=== PATIENT | male | born 1965 | race Caucasian/White ===

== ENCOUNTER 2023-08-06 18:08 | Emergency (ER) | payer OTHER ==
[2023-08-06 18:17] VITALS: BP 131/85; PULSE 93; RESP 19; TEMP 98.6; BMI 22.0
== END 2023-08-06 21:31 ==
LOC: JER 18:08
DX: F11.90 Opioid use, unspecified, uncomplicated (principal); R10.32 Left lower quadrant pain; F19.10 Other psychoactive substance abuse, uncomplicated; R40.0 Somnolence
CPT/HCPCS: 99282-25

== ENCOUNTER 2023-08-06 22:18 | Inpatient (IN) | payer OTHER ==
[2023-08-06 22:53] VITALS: BMI 22.4
[2023-08-06] MEDS ORDERED: guaiFENesin 600 MG TABLET.ER (FP) PO PRN (23:54)
[2023-08-06] MEDS ORDERED: IBUPROFEN 400 MG TABLET (FP) PO PRN (23:54)
[2023-08-06] MEDS ORDERED: NALOXONE HCL 0.4 MG/ML VIAL IM PRN (23:54)
[2023-08-06] MEDS ORDERED: BENZOCAINE/MENTHOL (CHLORASEPTIC ) LOZENGE MM PRN (23:54)
[2023-08-06] MEDS ORDERED: NICOTINE POLACRILEX 2 MG LOZENGE BC PRN (23:54)
[2023-08-06] MEDS ORDERED: IBUPROFEN 600 MG TABLET (FP) PO PRN (23:54)
[2023-08-06] MEDS ORDERED: NALOXONE HCL (KLOXXADO) 8 MG SPRAY NS PRN (23:54)
[2023-08-06] MEDS ORDERED: POLYETHYLENE GLYCOL (HEALTHYLAX) 3350 17 GM PACKET PO PRN (23:54)
[2023-08-06] MEDS ORDERED: LOPERAMIDE HCL 2 MG CAPSULE PO PRN (23:54)
[2023-08-06] MEDS ORDERED: MAGNESIUM HYDROX 2400MG/30ML ORAL SUSPENSION 30 ML CUP PO PRN (23:54)
[2023-08-06] MEDS ORDERED: DICYCLOMINE HCL 10 MG CAPSULE PO PRN (23:54)
[2023-08-06] MEDS ORDERED: BISMUTH SUBSALICYLATE 524 MG/30 ML PO PRN (23:54)
[2023-08-06] MEDS ORDERED: BENZONATATE 200 MG CAPSULE PO PRN (23:54)
[2023-08-07] MEDS: PRENATAL VITAMINS W/ FOLIC ACID TABLET (FP) PO SCH (09:49)
[2023-08-07] MEDS: hydrOXYzine PAMOATE 25 MG CAPSULE (FP) PO PRN (09:49)
[2023-08-07] MEDS: MAG HYDROX/AL HYDROX/SIMETH 30 ML UNIT-DOSE CUP PO PRN (09:49)
[2023-08-07] MEDS: NICOTINE 14 MG/24 HOURS TOPICAL PATCH TD SCH (09:54)
[2023-08-07] MEDS: SENNOSIDES 8.6MG TABLET (FP) PO SCH (10:30)
[2023-08-07 10:51] LABS: HEMOGLOBIN 10.4 GM/dL (11.7-16.9); MCH 26.6 pg (25.7-33.7); MCHC 30.7 g/dl (32.0-35.9); MEAN CELL VOLUME 86.6 fl (80-96); MEAN PLT VOLUME 9.1 fl (7.5-11.1); PLATELET COUNT 568 10^3/uL (134-434); RBC 3.93 M/mm3 (4.00-5.60); RDW 23.7 % (11.9-15.9)
[2023-08-07 10:53] LABS: WHITE BLOOD COUNT 15.2 K/mm3 (4.0-10.0)
[2023-08-07] MEDS: PANTOPRAZOLE 40 MG TABLET PO SCH (10:56)
[2023-08-07] MEDS: ALBUTEROL SO4 HFA INHALER IH SCH (10:56)
[2023-08-07] MEDS: CLOPIDOGREL BISULFATE 75 MG TABLET (FP) PO SCH (10:56)
[2023-08-07] MEDS: APIXABAN 5 MG TABLET PO SCH (10:56)
[2023-08-07] MEDS: levETIRAcetam 500 MG TABLET (FP) PO SCH (10:56)
[2023-08-07] MEDS ORDERED: chlordiazePOXIDE HCL 25 MG CAPSULE PO PRN (10:59)
[2023-08-07] MEDS: ONDANSETRON *ODT* 4 MG TABLET SL PRN (11:04)
[2023-08-07] MEDS: chlordiazePOXIDE HCL 25 MG CAPSULE PO SCH (11:32)
[2023-08-07 11:46] LABS: CHLORIDE 106 mmol/L (98-107); POTASSIUM 4.3 mmol/L (3.5-5.1); SODIUM 141 mmol/L (136-145)
[2023-08-07 11:55] LABS: ALBUMIN 3.9 g/dl (3.4-5.0); ANION GAP 6 mmol/L (4-13); BLOOD UREA NITROGEN 14.5 mg/dL (7-18); CALCIUM 9.2 mg/dL (8.5-10.1); CO2 28 mmol/L (21-32); GLUCOSE,RANDOM 93 mg/dL (74-106)
[2023-08-07 11:58] LABS: CREATININE 0.9 mg/dL (0.55-1.3); SGPT/ALT 21 U/L (13-61)
[2023-08-07 11:59] LABS: SGOT/AST 13 U/L (15-37)
[2023-08-07 12:00] LABS: BILIRUBIN,TOTAL 0.3 mg/dL (0.2-1); TOT PROT 7.4 g/dl (6.4-8.2)
[2023-08-07 12:01] LABS: ALK PHOS 142 U/L (45-117)
[2023-08-07 12:21] LABS: ANISOCYTOSIS 3+; CORRECTED WBC 13.69 K/mm3; MACROCYTOSIS 0; OVALOCYTE 1+; TARGET CELLS 1+
[2023-08-07] MEDS: HYDROXYUREA 500 MG CAPSULE PO SCH (16:02)
[2023-08-07] MEDS: THIAMINE HCL 100 MG TABLET (FP) PO SCH (23:00)
[2023-08-07] MEDS: MELATONIN 5 MG TABLETS PO SCH (23:01)
[2023-08-08] MEDS: SENNOSIDES 8.6MG TABLET (FP) PO SCH (10:05)
[2023-08-08 10:32] LABS: POTASSIUM 4.7 mmol/L (3.5-5.1)
[2023-08-08 10:35] LABS: BLOOD UREA NITROGEN 14.2 mg/dL (7-18)
[2023-08-08 10:37] LABS: CREATININE 0.8 mg/dL (0.55-1.3)
[2023-08-08] MEDS: ALBUTEROL SO4 HFA INHALER IH PRN (17:46)
[2023-08-08] MEDS ORDERED: ALBUTEROL SO4 2.5/IPRATROPIUM 0.5 INH SOL 3 ML VIAL.NEB. NEB ONE (18:02)
[2023-08-08] MEDS ORDERED: ASPIRIN 81 MG CHEWABLE TABLETS ONE (18:08)
[2023-08-08] MEDS: ALBUTEROL SO4 2.5/IPRATROPIUM 0.5 INH SOL 3 ML VIAL.NEB. NEB ONE (18:17)
[2023-08-08] MEDS: ASPIRIN 81 MG CHEWABLE TABLETS PO ONE (18:17)
[2023-08-08] MEDS ORDERED: NITROGLYCERIN SUBLINGUAL 1/150 0.4 MG TAB ONE (18:21)
[2023-08-08] MEDS: NITROGLYCERIN SUBLINGUAL 1/150 0.4 MG TAB SL ONE (18:21)
[2023-08-08 18:56] VITALS: BP 142/88; RESP 18; TEMP 98.4
[2023-08-08 19:04] VITALS: PULSE 108
[2023-08-09] MEDS: chlordiazePOXIDE HCL 25 MG CAPSULE PO SCH (05:55)
[2023-08-10] MEDS ORDERED: chlordiazePOXIDE HCL 10 MG CAPSULE PO PRN
[2023-08-10] MEDS ORDERED: chlordiazePOXIDE HCL 10 MG CAPSULE PO SCH (05:00)
[2023-08-11] MEDS ORDERED: chlordiazePOXIDE HCL 10 MG CAPSULE PO SCH (05:00)
[2023-08-12] MEDS ORDERED: chlordiazePOXIDE HCL 10 MG CAPSULE PO ONE (05:00)
== END 2023-08-08 23:58 | disposition short-term general hospital (02) | DRG 773 ==
LOC: YASAS 22:18 → Y3N 23:55
PROVIDERS: ADMIT Allergy & Immunology; ATTEND Surgery
PROC: HZ2ZZZZ Detoxification Services for Substance Abuse Treatment (ICD-10-PCS; principal; 2023-08-06)
DX: F10.230 Alcohol dependence with withdrawal, uncomplicated (principal); F11.20 Opioid dependence, uncomplicated; F14.20 Cocaine dependence, uncomplicated; F17.210 Nicotine dependence, cigarettes, uncomplicated; E78.5 Hyperlipidemia, unspecified; I10 Essential (primary) hypertension; J45.20 Mild intermittent asthma, uncomplicated; G40.909 Epilepsy, unspecified, not intractable, without status epilepticus; R07.9 Chest pain, unspecified; R06.02 Shortness of breath; Z28.310 Unvaccinated for COVID-19; Z28.9 Immunization not carried out for unspecified reason; Z90.81 Acquired absence of spleen
CPT/HCPCS: 36415; 71046-TC-FY; 80048; 80053; 80307; 85025; 86593; 86780; 87635; 93005; 93010; 94640; J8999; Q0162

== ENCOUNTER 2023-08-08 19:09 | Inpatient (IN) | payer OTHER ==
[2023-08-08 19:53] LABS: HEMOGLOBIN 10.2 GM/dL (11.7-16.9); MCH 26.6 pg (25.7-33.7); MCHC 30.9 g/dl (32.0-35.9); MEAN CELL VOLUME 86.1 fl (80-96); MEAN PLT VOLUME 8.8 fl (7.5-11.1); PLATELET COUNT 493 10^3/uL (134-434); RBC 3.84 M/mm3 (4.00-5.60); RDW 22.8 % (11.9-15.9); WHITE BLOOD COUNT 14.7 K/mm3 (4.0-10.0)
[2023-08-08 20:07] LABS: INR 1.08 (0.83-1.09); PROTHROMBIN TIME (PATIENT) 12.5 SEC (9.7-13.0)
[2023-08-08 20:09] LABS: ADD RBC MORPHOLOGY YES
[2023-08-08 20:10] LABS: ACTIVATED PTT 34.6 SECONDS (25.2-36.5)
[2023-08-08 20:14] LABS: POTASSIUM 4.1 mmol/L (3.5-5.1)
[2023-08-08 20:18] LABS: ALBUMIN 3.6 g/dl (3.4-5.0); BLOOD UREA NITROGEN 15.5 mg/dL (7-18); CALCIUM 8.7 mg/dL (8.5-10.1); MAGNESIUM 1.8 mg/dL (1.8-2.4)
[2023-08-08 20:20] LABS: CREATININE 0.9 mg/dL (0.55-1.3)
[2023-08-08 20:22] LABS: BILIRUBIN,TOTAL 0.2 mg/dL (0.2-1)
[2023-08-08] MEDS ORDERED: ACETAMINOPHEN INJECTION 100 ML IVPB ONE (20:34)
[2023-08-08] MEDS ORDERED: FAMOTIDINE 20 MG/50 ML IVPB 20 MG/50 ML MG IVPB ONE (20:35)
[2023-08-08] MEDS: ACETAMINOPHEN 1000 MG/100 ML BAG IVPB ONE (20:41)
[2023-08-08] MEDS: FAMOTIDINE 20 MG/50 ML IVPB 20 MG/50 ML MG IVPB ONE (20:41)
[2023-08-08 21:09] LABS: ANISOCYTOSIS 2+; CORRECTED WBC 12.15 K/mm3; MACROCYTOSIS 1+; OVALOCYTE 1+; TARGET CELLS 2+
[2023-08-09] MEDS: KETOROLAC TROMETHAMINE 15 MG/ML VIAL IVPUSH ONE (02:11)
[2023-08-09] MEDS ORDERED: ACETAMINOPHEN INJECTION 100 ML IVPB ONE (02:24)
[2023-08-09] MEDS: ACETAMINOPHEN 1000 MG/100 ML BAG IVPB ONE (02:32)
[2023-08-09] MEDS ORDERED: ALBUTEROL SO4 HFA INHALER IH PRN (02:45)
[2023-08-09] MEDS ORDERED: chlordiazePOXIDE HCL 10 MG CAPSULE ONE (04:09)
[2023-08-09] MEDS ORDERED: APIXABAN 5 MG TABLET ONE (04:10)
[2023-08-09] MEDS: chlordiazePOXIDE HCL 10 MG CAPSULE PO SCH (04:19)
[2023-08-09] MEDS: APIXABAN 5 MG TABLET PO SCH (04:19)
[2023-08-09 05:27] VITALS: BMI 23.1
[2023-08-09] MEDS: traMADol HCL 50 MG TABLET PO ONE (05:35)
[2023-08-09] MEDS: PANTOPRAZOLE 40 MG TABLET PO SCH (06:39)
[2023-08-09 08:58] LABS: POTASSIUM 4.3 mmol/L (3.5-5.1)
[2023-08-09 09:06] LABS: BLOOD UREA NITROGEN 12.7 mg/dL (7-18)
[2023-08-09 09:09] LABS: CREATININE 0.9 mg/dL (0.55-1.3)
[2023-08-09] MEDS: CLOPIDOGREL BISULFATE 75 MG TABLET (FP) PO SCH (09:24)
[2023-08-09 09:25] LABS: HEMATOCRIT 30.9 % (35.4-49); HEMOGLOBIN 9.3 GM/dL (11.7-16.9); MCH 26.3 pg (25.7-33.7); MCHC 29.9 g/dl (32.0-35.9); MEAN CELL VOLUME 87.8 fl (80-96); MEAN PLT VOLUME 9.4 fl (7.5-11.1); PLATELET COUNT 487 10^3/uL (134-434); RBC 3.52 M/mm3 (4.00-5.60); RDW 23.4 % (11.9-15.9)
[2023-08-09] MEDS: levETIRAcetam 500 MG TABLET (FP) PO SCH (09:25)
[2023-08-09] MEDS: THIAMINE HCL 100 MG TABLET (FP) PO SCH (09:25)
[2023-08-09] MEDS: amLODIPine BESYLATE 5 MG TABLET (FP) PO SCH (09:25)
[2023-08-09] MEDS: DULoxetine HCL 30 MG CAPSULE.DR PO SCH (09:25)
[2023-08-09] MEDS: FOLIC ACID 1 MG TABLET (FP) PO SCH (09:25)
[2023-08-09] MEDS: HYDROXYUREA 500 MG CAPSULE PO SCH (09:26)
[2023-08-09 09:34] LABS: WHITE BLOOD COUNT 16.1 K/mm3 (4.0-10.0)
[2023-08-09 11:55] LABS: RETICULOCYTES 3.54 % (0.5-1.5)
[2023-08-09] MEDS: ACETAMINOPHEN 1000 MG/100 ML BAG IVPB PRN (13:07)
[2023-08-09] MEDS: SENNOSIDES 8.6MG TABLET (FP) PO SCH (21:45)
[2023-08-10] MEDS: chlordiazePOXIDE HCL 10 MG CAPSULE PO SCH (05:24)
[2023-08-10 09:49] LABS: HEMATOCRIT 33.1 % (35.4-49); MCH 25.9 pg (25.7-33.7); MCHC 30.1 g/dl (32.0-35.9); MEAN CELL VOLUME 86.2 fl (80-96); MEAN PLT VOLUME 9.5 fl (7.5-11.1); PLATELET COUNT 514 10^3/uL (134-434); RBC 3.84 M/mm3 (4.00-5.60); RDW 22.6 % (11.9-15.9)
[2023-08-10 09:51] LABS: POTASSIUM 4.7 mmol/L (3.5-5.1)
[2023-08-10 09:52] LABS: WHITE BLOOD COUNT 18.2 K/mm3 (4.0-10.0)
[2023-08-10 09:54] LABS: CALCIUM 8.9 mg/dL (8.5-10.1)
[2023-08-10 09:55] LABS: ALBUMIN 3.5 g/dl (3.4-5.0); BLOOD UREA NITROGEN 9.5 mg/dL (7-18)
[2023-08-10 09:57] LABS: CREATININE 0.8 mg/dL (0.55-1.3)
[2023-08-10 09:59] LABS: BILIRUBIN,TOTAL 0.3 mg/dL (0.2-1)
[2023-08-10 10:53] LABS: ANISOCYTOSIS 1+; CORRECTED WBC 15.17 K/mm3; MACROCYTOSIS 1+; TARGET CELLS 2+
[2023-08-10 12:58] LABS: COCAINE, UR NEGATIVE (NEGATIVE); METHADONE, UR NEGATIVE (NEGATIVE); PHENCYCLIDINE,URINE NEGATIVE (NEGATIVE)
[2023-08-10 12:59] LABS: OPIATES, URI POSITIVE (NEGATIVE); URINE AMPHETAMINES NEGATIVE (NEGATIVE); URINE BARBITURATES NEGATIVE (NEGATIVE); URINE BENZODIAZEPINES POSITIVE (NEGATIVE)
[2023-08-11] MEDS: chlordiazePOXIDE HCL 10 MG CAPSULE PO ONE (05:02)
[2023-08-11 06:34] VITALS: RESP 18
[2023-08-11 12:13] LABS: CALCIUM 9.4 mg/dL (8.5-10.1)
[2023-08-11 12:14] LABS: ALBUMIN 3.6 g/dl (3.4-5.0); BLOOD UREA NITROGEN 10.7 mg/dL (7-18)
[2023-08-11 12:18] LABS: BILIRUBIN,TOTAL 0.3 mg/dL (0.2-1); TOT PROT 7.1 g/dl (6.4-8.2)
[2023-08-11 12:33] LABS: HEMATOCRIT 32.9 % (35.4-49); HEMOGLOBIN 10.2 GM/dL (11.7-16.9); MCH 26.2 pg (25.7-33.7); MEAN CELL VOLUME 84.8 fl (80-96); PLATELET COUNT 542 10^3/uL (134-434); RBC 3.88 M/mm3 (4.00-5.60); RDW 23.3 % (11.9-15.9)
[2023-08-11 12:35] LABS: WHITE BLOOD COUNT 19.2 K/mm3 (4.0-10.0)
[2023-08-11 12:57] LABS: ANISOCYTOSIS 2+; CORRECTED WBC 13.71 K/mm3; MACROCYTOSIS 0; TARGET CELLS 2+
[2023-08-11] MEDS: ONDANSETRON 4 MG/2 ML VIAL IVPUSH ONE (22:04)
[2023-08-12] MEDS: ACETAMINOPHEN 1000 MG/100 ML BAG IVPB PRN (00:43)
[2023-08-12 10:30] LABS: HEMOGLOBIN 10.6 GM/dL (11.7-16.9); MCH 25.9 pg (25.7-33.7); MCHC 30.3 g/dl (32.0-35.9); MEAN CELL VOLUME 85.3 fl (80-96); MEAN PLT VOLUME 9.3 fl (7.5-11.1); PLATELET COUNT 609 10^3/uL (134-434); RDW 23.4 % (11.9-15.9)
[2023-08-12 10:45] LABS: POTASSIUM 4.8 mmol/L (3.5-5.1)
[2023-08-12 10:53] LABS: ALBUMIN 3.7 g/dl (3.4-5.0); BLOOD UREA NITROGEN 15.6 mg/dL (7-18); CALCIUM 9.3 mg/dL (8.5-10.1)
[2023-08-12 10:57] LABS: BILIRUBIN,TOTAL 0.3 mg/dL (0.2-1); TOT PROT 7.1 g/dl (6.4-8.2)
[2023-08-12 11:33] LABS: ANISOCYTOSIS 2+; MACROCYTOSIS 1+
[2023-08-12 11:35] LABS: CORRECTED WBC 12.69 K/mm3
[2023-08-12 13:12] LABS: WHITE BLOOD COUNT 19.8 K/mm3 (4.0-10.0)
[2023-08-12] MEDS: morphine SULFATE 4 MG/ML VIAL IVPUSH PRN (16:26)
[2023-08-13 08:56] LABS: HEMATOCRIT 33.9 % (35.4-49); HEMOGLOBIN 10.6 GM/dL (11.7-16.9); MCH 26.6 pg (25.7-33.7); MCHC 31.3 g/dl (32.0-35.9); MEAN PLT VOLUME 9.3 fl (7.5-11.1); PLATELET COUNT 680 10^3/uL (134-434); RBC 3.99 M/mm3 (4.00-5.60); RDW 23.5 % (11.9-15.9)
[2023-08-13 08:57] LABS: WHITE BLOOD COUNT 18.7 K/mm3 (4.0-10.0)
[2023-08-13 09:17] LABS: POTASSIUM 5.1 mmol/L (3.5-5.1)
[2023-08-13 09:24] LABS: CALCIUM 9.2 mg/dL (8.5-10.1)
[2023-08-13 09:25] LABS: ALBUMIN 3.6 g/dl (3.4-5.0); BLOOD UREA NITROGEN 16.3 mg/dL (7-18)
[2023-08-13 09:28] LABS: CREATININE 0.9 mg/dL (0.55-1.3)
[2023-08-13 09:29] LABS: TOT PROT 7.3 g/dl (6.4-8.2)
[2023-08-13 09:30] LABS: BILIRUBIN,TOTAL 0.3 mg/dL (0.2-1)
[2023-08-13 10:17] LABS: ANISOCYTOSIS 1+; CORRECTED WBC 11.61 K/mm3; MACROCYTOSIS 0; TARGET CELLS 2+
[2023-08-13] MEDS: ONDANSETRON 4 MG/2 ML VIAL IVPUSH PRN (18:06)
[2023-08-14 08:59] VITALS: BP 110/63; PULSE 79; TEMP 97.8
== END 2023-08-14 14:49 | disposition other institution (70) | DRG 197 ==
LOC: JER 19:09 → JERBED 08-09 00:44 → J5S 08-09 04:51
PROVIDERS: ADMIT Internal Medicine
DX: I77.72 Dissection of iliac artery (principal); F11.20 Opioid dependence, uncomplicated; D45 Polycythemia vera; F14.20 Cocaine dependence, uncomplicated; F10.20 Alcohol dependence, uncomplicated; F17.210 Nicotine dependence, cigarettes, uncomplicated; I10 Essential (primary) hypertension; R07.9 Chest pain, unspecified; K21.9 Gastro-esophageal reflux disease without esophagitis; E78.5 Hyperlipidemia, unspecified
CPT/HCPCS: 0241U-QW; 36415; 71046-TC-FY; 71275-TC; 74174-TC; 80048; 80053; 80307; 83540; 83550; 83735; 84466; 84484; 85025; 85027; 85045; 85379; 85610; 85730; 87040; 88300-TC; 93005; 93010; 99285-25; J0131; J8999

== ENCOUNTER 2023-09-29 10:06 | Inpatient (IN) | payer OTHER ==
[2023-09-29 11:05] VITALS: BMI 21.7
[2023-09-29] MEDS ORDERED: BENZONATATE 200 MG CAPSULE PO PRN (12:08)
[2023-09-29] MEDS ORDERED: NALOXONE HCL 0.4 MG/ML VIAL IM PRN (12:08)
[2023-09-29] MEDS ORDERED: MAGNESIUM HYDROX 2400MG/30ML ORAL SUSPENSION 30 ML CUP PO PRN (12:08)
[2023-09-29] MEDS ORDERED: IBUPROFEN 600 MG TABLET (FP) PO PRN (12:08)
[2023-09-29] MEDS ORDERED: BENZOCAINE/MENTHOL (CHLORASEPTIC ) LOZENGE MM PRN (12:08)
[2023-09-29] MEDS ORDERED: IBUPROFEN 400 MG TABLET (FP) PO PRN (12:08)
[2023-09-29] MEDS ORDERED: MAG HYDROX/AL HYDROX/SIMETH 30 ML UNIT-DOSE CUP PO PRN (12:08)
[2023-09-29] MEDS ORDERED: POLYETHYLENE GLYCOL (HEALTHYLAX) 3350 17 GM PACKET PO PRN (12:08)
[2023-09-29] MEDS ORDERED: NALOXONE HCL (KLOXXADO) 8 MG SPRAY NS PRN (12:08)
[2023-09-29] MEDS ORDERED: LOPERAMIDE HCL 2 MG CAPSULE PO PRN (12:08)
[2023-09-29] MEDS ORDERED: guaiFENesin 600 MG TABLET.ER (FP) PO PRN (12:08)
[2023-09-29] MEDS: NICOTINE 21 MG/24 HOURS TOPICAL PATCH TD SCH (13:04)
[2023-09-29] MEDS: PRENATAL VITAMINS W/ FOLIC ACID TABLET (FP) PO SCH (13:04)
[2023-09-29] MEDS ORDERED: NICOTINE 21 MG/24 HOURS TOPICAL PATCH ONE (13:06)
[2023-09-29] MEDS ORDERED: PRENATAL VITAMINS W/ FOLIC ACID TABLET (FP) PO ONE (13:07)
[2023-09-29] MEDS: ALBUTEROL SO4 HFA INHALER IH SCH (13:40)
[2023-09-29] MEDS: APIXABAN 5 MG TABLET PO SCH ×2 (13:40→21:31)
[2023-09-29] MEDS: TUBERCULIN PPD 5 TU/0.1ML VIAL ID ONE (18:07)
[2023-09-29] MEDS: MELATONIN 5 MG TABLETS PO SCH (21:31)
[2023-09-29] MEDS: HYDROXYUREA 500 MG CAPSULE PO SCH (21:31)
[2023-09-29] MEDS: THIAMINE 100 MG TABLET PO SCH (21:31)
[2023-09-29] MEDS: ACETAMINOPHEN 325 MG TABLET (FP) PO PRN (21:34)
[2023-09-30] MEDS: PANTOPRAZOLE 40 MG TABLET PO SCH (06:25)
[2023-09-30] MEDS: levETIRAcetam 500 MG TABLET (FP) PO SCH (09:36)
[2023-09-30] MEDS: amLODIPine BESYLATE 5 MG TABLET (FP) PO SCH (09:36)
[2023-09-30] MEDS: SENNOSIDES 8.6MG TABLET (FP) PO SCH (09:37)
[2023-09-30] MEDS: CLOPIDOGREL BISULFATE 75 MG TABLET (FP) PO SCH (09:37)
[2023-09-30] MEDS ORDERED: SENNOSIDES 8.6MG TABLET (FP) PO SCH (10:00)
[2023-09-30 11:42] LABS: URINE APPEARANCE CLEAR; URINE BILIRUBIN NEGATIVE (NEGATIVE); URINE COLOR YELLOW; URINE GLUCOSE (UA) NEGATIVE (NEGATIVE); URINE KETONE TRACE (NEGATIVE); URINE LEUK ESTERASE NEGATIVE (NEGATIVE); URINE NITRITE NEGATIVE (NEGATIVE); URINE PROTEIN NEGATIVE (NEGATIVE); URINE UROBILINOGEN 0.2 mg/dL (0.2-1.0)
[2023-09-30 12:51] LABS: CHLORIDE 106 mmol/L (98-107); POTASSIUM 4.5 mmol/L (3.5-5.1); SODIUM 141 mmol/L (136-145)
[2023-09-30 12:54] LABS: BLOOD UREA NITROGEN 9.2 mg/dL (7-18); CALCIUM 9.1 mg/dL (8.5-10.1); HEMATOCRIT 38.8 % (35.4-49); HEMOGLOBIN 11.5 GM/dL (11.7-16.9); MCH 24.9 pg (25.7-33.7); MCHC 29.7 g/dl (32.0-35.9); MEAN CELL VOLUME 83.9 fl (80-96); MEAN PLT VOLUME 10.1 fl (7.5-11.1); PLATELET COUNT 524 10^3/uL (134-434); RBC 4.62 M/mm3 (4.00-5.60); RDW 28.3 % (11.9-15.9); WHITE BLOOD COUNT 16.4 K/mm3 (4.0-10.0)
[2023-09-30 12:55] LABS: ALBUMIN 3.6 g/dl (3.4-5.0); ANION GAP 7 mmol/L (4-13); CO2 27 mmol/L (21-32); GLUCOSE,RANDOM 80 mg/dL (74-106)
[2023-09-30 12:56] LABS: SYPHILIS W/ RPR CONF REACTIVE (NONREACTIVE)
[2023-09-30 12:57] LABS: CREATININE 0.9 mg/dL (0.55-1.3); SGOT/AST 12 U/L (15-37); SGPT/ALT 16 U/L (13-61)
[2023-09-30 12:59] LABS: BILIRUBIN,TOTAL 0.4 mg/dL (0.2-1); TOT PROT 6.8 g/dl (6.4-8.2)
[2023-09-30 13:00] LABS: ALK PHOS 128 U/L (45-117)
[2023-09-30 13:43] LABS: CORRECTED WBC 14.02 K/mm3
[2023-10-01] MEDS ORDERED: BISMUTH SUBSALICYLATE 524 MG/30 ML PO PRN (09:46)
[2023-10-01] MEDS ORDERED: DICYCLOMINE HCL 10 MG CAPSULE PO PRN (09:46)
[2023-10-01] MEDS ORDERED: BUPRENORPHINE HCL 150 MCG, BUPRENORPHINE HCL 75 MCG BC PRN (09:48)
[2023-10-01] MEDS: BUPRENORPHINE HCL 150 MCG, BUPRENORPHINE HCL 75 MCG BC ONE (10:26)
[2023-10-01] MEDS: DULoxetine HCL 60 MG CAPSULE.DR PO SCH (10:28)
[2023-10-01] MEDS: GABAPENTIN 300 MG CAPSULE PO SCH (10:28)
[2023-10-01] MEDS: ONDANSETRON *ODT* 4 MG TABLET SL PRN (11:53)
[2023-10-01] MEDS: diazePAM 5 MG TABLET PO PRN (13:51)
[2023-10-01] MEDS ORDERED: ALBUTEROL SO4 HFA INHALER IH PRN (15:15)
[2023-10-02] MEDS: BUPRENORPHINE HCL 150 MCG, BUPRENORPHINE HCL 75 MCG BC SCH (06:33)
[2023-10-02] MEDS: BUPRENORPHINE HCL 150 MCG, BUPRENORPHINE HCL 75 MCG BC PRN (13:17)
[2023-10-03] MEDS: METHOCARBAMOL 500 MG TABLET PO PRN (02:39)
[2023-10-03] MEDS: hydrOXYzine PAMOATE 25 MG CAPSULE (FP) PO PRN (06:28)
[2023-10-03] MEDS: BUPRENORPHINE HCL 450 MCG FILM BC SCH (06:29)
[2023-10-03] MEDS: GABAPENTIN 100 MG CAPSULE PO SCH (13:20)
[2023-10-03] MEDS: METHOCARBAMOL 500 MG TABLET PO SCH (21:28)
[2023-10-04] MEDS: BUPRENORPHINE/NALOXONE 4 MG/1 MG FILM PACKET SL SCH (06:28)
[2023-10-04] MEDS: DULoxetine HCL 60 MG CAPSULE.DR PO SCH (09:53)
[2023-10-04] MEDS: amLODIPine BESYLATE 5 MG TABLET (FP) PO SCH (09:54)
[2023-10-05] MEDS: BUPRENORPHINE/NALOXONE 4 MG/1 MG FILM PACKET SL SCH (09:59)
[2023-10-06 06:49] VITALS: RESP 16; TEMP 97.5
[2023-10-06] MEDS: DULoxetine HCL 30 MG CAPSULE.DR PO SCH (09:54)
[2023-10-06 10:18] VITALS: BP 123/81; PULSE 75
[2023-10-06] MEDS: GABAPENTIN 100 MG CAPSULE PO SCH (14:24)
== END 2023-10-06 15:05 | disposition home or self-care (01) | DRG 772 ==
LOC: YASAS 10:06 → Y3NR 12:40 → Y3W 16:42
PROVIDERS: ADMIT Allergy & Immunology; ATTEND Psychiatry & Neurology Pain Medicine
PROC: HZ42ZZZ Group Counseling for Substance Abuse Treatment, Cognitive-Behavioral (ICD-10-PCS; principal; 2023-09-29)
DX: F11.20 Opioid dependence, uncomplicated (principal); F14.20 Cocaine dependence, uncomplicated; F10.20 Alcohol dependence, uncomplicated; F17.210 Nicotine dependence, cigarettes, uncomplicated; F41.9 Anxiety disorder, unspecified; G40.909 Epilepsy, unspecified, not intractable, without status epilepticus; E78.5 Hyperlipidemia, unspecified; I10 Essential (primary) hypertension; K21.9 Gastro-esophageal reflux disease without esophagitis; J45.20 Mild intermittent asthma, uncomplicated; D45 Polycythemia vera; R10.12 Left upper quadrant pain; Z90.81 Acquired absence of spleen
CPT/HCPCS: 36415; 80053; 80177; 80307; 81003; 85027; 86593; 86780; 86803; 93005; 93010; J8999; Q0162